=== PATIENT | male | born 1960 | race Caucasian/White ===

== ENCOUNTER 2018-09-16 07:32 | Day surgery (SDC) | payer OTHER ==
[~2018-09-16] VITALS: Ht 175.3 cm; Wt 77.1 kg
[2018-09-16] VITALS (9 sets, daily range): BP systolic 117–137; BP diastolic 65–79
--- NOTE | 2018-09-16 06:48 | Anethesia Preoperative Eval ---
Anesthesia Pre-op PMH/ROS General Date of Evaluation: Sep 16, 2018 Anesthesiologist: Mike ASA Score: ASA 2 Mallampati Score Class I : Soft palate, uvula, fauces, pillars visible Class II: Soft palate, uvula, fauces visible Class III: Soft palate, base of uvula visible Class IV: Only hard plate visible Mallampati Classification: Class II Surgeon: Rhona Diagnosis: Abdominal mass Surgical Procedure: EUS with FNA Anesthesia History: none Family History: no anesthesia problems Allergies: Coded Allergies: No Known Allergies (Verified , 05/24/10) Medications: see eMAR Patient NPO?: Yes NPO Date: Sep 15, 2018 NPO Time: 22:00 Past Medical History Cardiovascular: Denies: HTN, CAD, ID, valve dz, arrhythmia, other Pulmonary: Denies: asthma, COPD, ANDRE, other Gastrointestinal/Genitourinary: Reports: GERD, other - BPH; Denies: CRI, ESRD Neurologic/Psychiatric: Denies: dementia, CVA, depression/anxiety, TIA, other Endocrine: Denies: DM, hypothyroidism, steroids, other HEENT: Denies: cataract (L), cataract (R), glaucoma, [place] (L), [place] (R), other Hematology/Immune: Denies: anemia, DVT, bleeding disorder, other Musculoskeletal/Integumentary: Denies: OA, RA, DJD, DDD, edema, other PSxH Narrative: septoplast, c-spine and l-spine fusion, prostatectomy, hernia repair Anesthesia Pre-op Phys. Exam Physician Exam see chart Constitutional: NAD Cardiovascular: RRR Respiratory: CTA Airway Exam Mallampati Score: Class II MO: full ROM: full Anesthesia Pre-op A/P Labs see chart Studies Pre-op Studies: EKG - sr Risk Assessment & Plan Assessment: ASA II Plan: MAC Status Change Before Surgery: No Pre-Antibiotics Drug: N/A Meaghan Irwin MD Sep 16, 2018 06:48
[2018-09-16] MEDS ORDERED: LR 1000ml 1,000 ML IVLG SCH (07:57)
[2018-09-16] MEDS ORDERED: DiphenhydrAMINE 50mg/ml Inj IVP PRN (08:00)
--- NOTE | 2018-09-16 09:21 | Pre-Procedure Note/Attestation ---
Pre-Procedure Note/Attestation Complete Prior to Procedure Planned Procedure: not applicable Procedure Narrative: egd/eus Indications for Procedure Pre-Operative Diagnosis: abd mass Attestation I attest that I discussed the nature of the procedure; its benefits; risks and complications; and alternatives (and the risks and benefits of such alternatives ), prior to the procedure, with the patient (or the patient's legal registration representative). I attest that, if there was a reasonable possibility of needing a blood transfusion, the patient (or the patient's legal registration representative) was given the [facility] standardized written summary, pursuant to the [place] Blood Safety Act ([place] Health and Safety Code # 1645, as amended). I attest that I re-evaluated the patient just prior to the surgery and that there has been no change in the patient's H&P, except as documented below: Omar Melgoza MD Sep 16, 2018 09:21
[2018-09-16] MEDS ORDERED: CIALIS5 MG PO (09:35)
[2018-09-16] MEDS ORDERED: FIORICET1 EA ORAL (09:35)
[2018-09-16] MEDS ORDERED: omeprazole PO (09:37)
[2018-09-16] MEDS ORDERED: TRAZODONE HCL150 MG ORAL (09:37)
--- NOTE | 2018-09-16 09:56 | Short Stay Surgery H&P ---
History of Present Illness History of Present Illness Chief Complaint abd mass HPI Kaveh Edmondson is a 57 year old male who was admitted on for Abdominal Pain Patient History Allergies: Coded Allergies: No Known Allergies (Verified , 05/24/10) PAST MEDICAL HISTORY: (1) Previous back surgery Medication History Scheduled Acetamin/Butalbital/Caffeine* (Fioricet*), 1 TAB ORAL Q6H, (Reported) Tadalafil (Cialis), 5 MG PO DAILY, (Reported) Trazodone* (Trazodone*), 150 MG ORAL BEDTIME, (Reported) [omeprazole], 1 TAB-CAP PO DAILY, (Reported) Review of Systems Cardiovascular: Reports: no symptoms Respiratory: Reports: no symptoms Skeletal: Reports: no symptoms Gastrointestinal: Reports: no symptoms Genitourinary: Reports: no symptoms Neurologic: Reports: no symptoms Endocrine: Reports: no symptoms Hematologic: Reports: no symptoms Physical Exam Vital Signs Last Vital Signs Date Time Temp Pulse Resp B/P (MAP) Pulse Ox O2 Delivery O2 Flow Rate FiO2 09/16/18 08:24 97.4 69 18 127/77 99 Room Air Labs Laboratory Tests Test 09/16/18 08:45 Carcinoembryonic Antigen Pending CA 19-9 Antigen Pending Skin: normal HENT: normal Heart: normal Lungs: normal Abdomen: normal Extremities: normal Plan Plan of Care egd/EUS Attestation Are the patient's medical conditions optimized for surgery? Attestation Response: yes Omar Melgoza MD Sep 16, 2018 09:56
[2018-09-16] MEDS ORDERED: cefOXitin 1gm Inj ONE (10:00)
[2018-09-16] MEDS ORDERED: Lidocaine 1% MPF 10mg/ml 5ml ONE (10:00)
[2018-09-16] MEDS ORDERED: Propofol 200mg/20ml IV ONE (10:00)
[2018-09-16] MEDS ORDERED: LR 1000ml ONE (10:00)
[2018-09-16] MEDS ORDERED: Heplock Flush 100 units/ml 3 ml syr ONE (10:19)
[2018-09-16] MEDS ORDERED: Heplock Flush 100 units/ml 3 ml syr IV ONE (10:30)
--- NOTE | 2018-09-16 11:03 | Immediate Post-Op Evaluation ---
Immediate Post-Op Evalulation Immediate Post-Op Evalulation Procedure: EUS with FNA Date of Evaluation: Sep 16, 2018 Time of Evaluation: 11:04 IV Fluids: 1L Blood Products: 0 Estimated Blood Loss: 0 Urinary Output: 0 Blood Pressure Systolic: 124 Blood Pressure Diastolic: 65 Pulse Rate: 74 Respiratory Rate: 16 O2 Sat by Pulse Oximetry: 100 Temperature (Fahrenheit): 97 Pain Score (1-10): 0 Nausea: No Vomiting: No Complications 0 Patient Status: awake, reacts, patent, none Hydration Status: adequate Drug: N/A Meaghan Irwin MD Sep 16, 2018 11:03
--- NOTE | 2018-09-16 11:04 | 48 Hour Post Anesthesia Eval ---
Post Anesthesia Evaluation Procedure: EUS with FNA Date of Evaluation: Sep 16, 2018 Airway: patent Nausea: No Vomiting: No Pain Intensity: 0 Hydration Status: adequate Cardiopulmonary Status: at baseline Mental Status/LOC: patient returned to baseline Post-Anesthesia Complications: 0 Follow-up care needed: ready to discharge Meaghan Irwin MD Sep 16, 2018 11:04
--- NOTE | 2018-09-16 11:12 | Endoscopy Procedure Note ---
Endoscopy Procedure Note General Indication for Procedure: abd mass Procedures Performed: EGD, other - EUS Operative Findings/Diagnosis: same Specimen: yes Pt Tolerated Procedure Well: Yes Estimated Blood Loss: none Anesthesia Anesthesiologist: tripp Anesthesia: MAC Inserted Devices Implant(s) used?: No GI Core Measures 50 yrs or older w/o bx or poly: Not Applicable 10yrs. F/U not recommended: Not Applicable Omar Melgoza MD Sep 16, 2018 11:12
--- NOTE | 2018-09-16 17:00 | Procedure Note ---
DATE OF PROCEDURE: 09/16/2018 SURGEON: Omar Melgoza M.D. PROCEDURE: Upper endoscopy, endoscopic ultrasound, and cold biopsy aspiration. INDICATION: Abdominal mass. REASON FOR PROCEDURE: The procedure, risks, benefits, and possible consequences, including hemorrhage, aspiration, perforation and infection, and alternative treatments, were explained to the patient/legal guardian by Dr. Omar Melgoza and the patient/legal guardian understood and accepted these risks. PROCEDURE IN DETAIL: After informed consent was obtained and the patient was adequately sedated, Olympus upper endoscope was advanced from mouth into the second portion of the duodenum and retroflexion performed in the stomach. The patient did not have any obvious ulcerations, varices, or any other pathology seen. At this time, the upper endoscope was retrieved and the EUS scope was introduced. First we used radial scope. Starting scanning at gastroesophageal junction, we found left adrenal gland, which was normal. Celiac axis was seen without any obvious celiac axis lymphadenopathy. Then, we encountered a 4.5 cm lesion close to the celiac axis with at most probably gastrohepatic ligament area. This lesion had component of the cystic and also component of solid, I would say about 50-50, almost 50% of it was cystic in nature and 50% was solid in nature. Did not seem to be arising from the pancreas nor from the liver, nor from any vascular structure. Then, we passed the scope through the rest of the stomach and duodenum to evaluate the rest of the pancreas. Pancreas grossly looked within normal limit. Ampulla was examined. There was no evidence of any pancreatic duct or common bile duct dilatation at the ampulla. Pancreatic duct measured 2.6 mm and common bile duct measured 3.3 mm at the ampulla. Common bile duct measured 5.6 mm above that in the mid portion of the common bile duct. There was no obvious peripancreatic lymphadenopathy. At this time, the EUS radial scope was removed and linear one was introduced for FNA. Using a 22-gauge core needle, we did four passes. In the first pass, we focused on the cystic part to get some fluid for CEA level. We got over 1 cm of yellowish fluid first and then we found some bloody later. After that, we did another three FNAs going mostly for the solid portion component of it and we collected tissue and sent it to the pathology. The patient tolerated the procedure very well without any complication. SUMMARY OF FINDINGS: 1. A 4.5 cm lesion at the gastrohepatic ligament area, had a cystic and also solid component, unknown etiology at this time, status post fine needle aspiration x4. 2. Normal pancreatic duct and common bile duct. No any obvious other pathology seen. RECOMMENDATIONS: 1. Follow up biopsy results and treat accordingly. 2. We will also send CEA level and CA-19-9 level for today. I want to thank Dr. Zavala for this kind referral. Omar Melgoza M.D. DR: JAVED JOB#: [id number] CC:
== END 2018-09-16 12:55 | disposition home or self-care (01) ==
LOC: GAS 07:32
DX: R19.00 Intra-abdominal and pelvic swelling, mass and lump, unspecified site (principal); K21.9 Gastro-esophageal reflux disease without esophagitis; N40.0 Benign prostatic hyperplasia without lower urinary tract symptoms
CPT/HCPCS: 43238; 82378; 93005; J0694; J1642; J2704; 94003; 94150

== ENCOUNTER 2019-05-03 15:44 | Emergency (ER) | payer OTHER ==
[~2019-05-03] VITALS: Ht 175.3 cm; Wt 77.1 kg
[~2019-05-03 15:44] MED LIST: CIALIS5 MG PO; FIORICET1 EA ORAL; TRAZODONE HCL150 MG ORAL; omeprazole PO
[2019-05-03 15:51] VITALS: BP 127/85
--- NOTE | 2019-05-03 15:52 | NUR ---
ED Nurse Note: pt presents to ED c/o abd pain that is diffusely over his lower abdomen. he rates the pain a 7/10 and denies any injury or trauma to the area but does note that it feels similar to diverticulitis pain that he has experienced in the past. pt also reports having chronic neck and back px that he takes norco daiy for but has not taken it for the last 4 days. pt reports having loose stools but denies any diarrhea
[2019-05-03] MEDS ORDERED: Omnipaque-300 100ml vial INJ PRN (16:00)
[2019-05-03] MEDS ORDERED: Ketorolac 30mg Inj IV ONE (16:15)
[2019-05-03] MEDS ORDERED: Morphine Sulfate 4mg/ml Inj (IV USE ONLY) IVP ONE ×2 (16:15→17:30)
[2019-05-03 16:33] LABS: APPEARANCE,URINE CLEAR; BILIRUBIN, URINE NEGATIVE (NEGATIVE); COLOR,URINE PALE YELLOW; GLUCOSE, URINE (UA) NEGATIVE (NEGATIVE); KETONES,URINE 1+ (NEGATIVE); LEUKOCYTE ESTERASE ,URINE 3+ (NEGATIVE); NITRITE,URINE NEGATIVE (NEGATIVE); PH,URINE 5 (4.5-8.0); PROTEIN,URINE NEGATIVE (NEGATIVE); UROBILINOGEN,URINE NORMAL MG/DL (0.0-1.0)
--- NOTE | 2019-05-03 16:39 | Emergency Room Report ---
History of Present Illness General Chief Complaint: Abdominal Pain Source: Patient, Medical Record Present Illness HPI 58-year-old male presents ED for evaluation. Patient complaining of abdominal pain for the last 10 days. Sharp, localized to left lower quadrant, 8 out of 10 , nonradiating. Notes history of diverticulitis. States this feels the same. States last episode was about 18 months ago. Denies any bloody stool. Denies fevers or chills. No other aggravating relieving factors. Denies any other associated symptoms Allergies: Coded Allergies: No Known Allergies (Verified , 05/24/10) Patient History Past Medical History: other - diverticulitis Past Surgical History: none Pertinent Family History: none Social History: Denies: smoking, alcohol use, drug use Immunizations: UTD Reviewed Nursing Documentation: PMH: Agreed; PSxH: Agreed Nursing Documentation-PMH Past Medical History: No History, Except For Hx Cardiac Problems: No Hx Cancer: No Hx Gastrointestinal Problems: Yes Hx Neurological Problems: No Review of Systems All Other Systems: negative except mentioned in HPI Physical Exam Vital Signs Date Time Temp Pulse Resp B/P (MAP) Pulse Ox O2 Delivery O2 Flow Rate FiO2 05/03/19 15:51 97.9 83 18 127/85 (99) 96 Room Air Sp02 EP Interpretation: reviewed, normal General Appearance: no apparent distress, alert, GCS 15, non-toxic Head: normocephalic, atraumatic Eyes: bilateral eye normal inspection, bilateral eye PERRL ENT: hearing grossly normal, normal pharynx, no angioedema, normal voice Neck: full range of motion, supple/symm/no masses Respiratory: chest non-tender, lungs clear, normal breath sounds, speaking full sentences Cardiovascular #1: regular rate, rhythm, no edema Cardiovascular #2: 2+ carotid (R), 2+ carotid (L), 2+ radial (R), 2+ radial (L) , 2+ dorsalis pedis (R), 2+ dorsalis pedis (L) Gastrointestinal: normal bowel sounds, soft, non-distended, no guarding, no rebound, tenderness - LLQ Rectal: deferred Genitourinary: normal inspection, no CVA tenderness Musculoskeletal: back normal, gait/station normal, normal range of motion, non- tender Neurologic: alert, oriented x3, responsive, motor strength/tone normal, sensory intact, speech normal Psychiatric: judgement/insight normal, memory normal, mood/affect normal, no suicidal/homicidal ideation Reflexes: 3+ bicep (R), 3+ bicep (L), 3+ tricep (R), 3+ tricep (L), 3+ knee (R) , 3+ knee (L) Lymphatic: no adenopathy Medical Decision Making Diagnostic Impression: Primary Impression: Constipation Qualified Codes: K59.00 - Constipation, unspecified Additional Impressions: Abdominal pain Qualified Codes: R10.9 - Unspecified abdominal pain Opioid dependence Qualified Codes: F11.29 - Opioid dependence with unspecified opioid-induced disorder ER Course Hospital Course 58-year-old M presents to ED with abdominal pain Differential diagnosis includes-appendicitis, cholecystitis, small bowel obstruction, gastritis, Clinical course Patient placed on stretcher. After initial history and physical I ordered labs , IV fluids, pain medications and CT scan Labs - no leukocytosis, electrolytes ok , LFTs normal, UA unremarkable CT scan shows no acute pathology. there is significant fecal impaction Discussed findings with the patient. States that normally he takes a bowel prep regimen every day which she had skipped for the last 3 days. I reviewed CURES and patient was receiving extensive narcotic prescriptions on a monthly basis. Safe for discharge for close outpatient follow-up. States he has a PMD and a GI specialist. Given copy of CT results I feel this is a highly complex case requiring extensive working including EKG/ Rhythm strip, Xray/CT/US, Blood/urine lab work, repeat exams while in ED, and administration of strong opiates/narcotics for pain control, admission to hospital or close patient follow up. Diagnosis -constipation, opioid dependence, abdominal pain Stable and discharged to home with Rx Dicyclomine, Colace. Followup with PMD. Return to ED if symptoms recur or worsen Labs Test 05/03/19 16:00 05/03/19 16:02 Urine Color Pale yellow Urine Appearance Clear Urine pH 5 (4.5-8.0) Urine Specific [place] 1.025 (1.005-1.035) Urine Protein Negative (NEGATIVE) Urine Glucose (UA) Negative (NEGATIVE) Urine Ketones 1+ (NEGATIVE) Urine Blood 2+ (NEGATIVE) Urine Nitrite Negative (NEGATIVE) Urine Bilirubin Negative (NEGATIVE) Urine Urobilinogen Normal MG/DL (0.0-1.0) Urine Leukocyte Esterase 3+ (NEGATIVE) Urine RBC 2-4 /HPF (0 - 0) Urine WBC 5-10 /HPF (0 - 0) Urine Squamous Epithelial Cells None /LPF (NONE/OCC) Urine Bacteria Few /HPF (NONE) White Blood Count 6.5 K/UL (4.8-10.8) Red Blood Count 5.50 M/UL (4.70-6.10) Hemoglobin 16.1 G/DL (14.2-18.0) Hematocrit 47.1 % (42.0-52.0) Mean Corpuscular Volume 86 FL (80-99) Mean Corpuscular Hemoglobin 29.3 PG (27.0-31.0) Mean Corpuscular Hemoglobin Concent 34.2 G/DL (32.0-36.0) Red Cell Distribution Width 9.7 % (11.6-14.8) Platelet Count 229 K/UL (150-450) Mean Platelet Volume 6.1 FL (6.5-10.1) Neutrophils (%) (Auto) 66.3 % (45.0-75.0) Lymphocytes (%) (Auto) 19.5 % (20.0-45.0) Monocytes (%) (Auto) 7.3 % (1.0-10.0) Eosinophils (%) (Auto) 5.1 % (0.0-3.0) Basophils (%) (Auto) 1.7 % (0.0-2.0) Sodium Level 140 MMOL/L (136-145) Potassium Level 3.8 MMOL/L (3.5-5.1) Chloride Level 107 MMOL/L (98-107) Carbon Dioxide Level 28 MMOL/L (21-32) Anion Gap 5 mmol/L (5-15) Blood Urea Nitrogen 13 mg/dL (7-18) Creatinine 1.2 MG/DL (0.55-1.30) Estimat Glomerular Filtration Rate > 60 mL/min (>60) Glucose Level 110 MG/DL (74-106) Calcium Level 8.9 MG/DL (8.5-10.1) Total Bilirubin 0.8 MG/DL (0.2-1.0) Aspartate Amino Transf (AST/SGOT) 16 U/L (15-37) Alanine Aminotransferase (ALT/SGPT) 28 U/L (12-78) Alkaline Phosphatase 57 U/L (46-116) Total Protein 6.9 G/DL (6.4-8.2) Albumin 3.4 G/DL (3.4-5.0) Globulin 3.5 g/dL Albumin/Globulin Ratio 1.0 (1.0-2.7) Lipase 129 U/L (73-393) CT/MRI/US Diagnostic Results CT/MRI/US Diagnostic Results : Imaging Test Ordered: CT A/P Impression No bowel obstruction, free fluid, free air, diverticulitis, or appendicitis. 4.8 cm gastrohepatic mass is favored to represent nonspecific lymphadenopathy. Indeterminate 1.4 cm right adrenal nodule. Splenomegaly. Nonspecific small foci of hypoattenuation in the liver and kidneys. No hydronephrosis. Gallbladder and pancreas are unremarkable. Last Vital Signs Date Time Temp Pulse Resp B/P (MAP) Pulse Ox O2 Delivery O2 Flow Rate FiO2 05/03/19 15:51 97.9 83 18 127/85 (99) 96 Room Air Status: improved Disposition: HOME, SELF-CARE Condition: Stable Scripts Docusate Sodium* (COLACE*) 100 Mg Capsule 100 MG ORAL THREE TIMES A DAY, #30 CAP Prov: Thomas Bowling MD 05/03/19 Dicyclomine Hcl* (DICYCLOMINE HCL*) 10 Mg Capsule 10 MG ORAL QID, #20 CAP Prov: Thomas Bowling MD 05/03/19 Thomas Bowling MD May 03, 2019 16:39
[2019-05-03 16:56] LABS: BASOPHILS % (AUTO) 1.7 % (0.0-2.0); EOSINOPHILS % (AUTO) 5.1 % (0.0-3.0); HEMATOCRIT 47.1 % (42.0-52.0); HEMOGLOBIN 16.1 G/DL (14.2-18.0); LYMPHOCYTES % (AUTO) 19.5 % (20.0-45.0); MEAN CORPUSCULAR VOLUME 86 FL (80-99); MONOCYTES % (AUTO) 7.3 % (1.0-10.0); NEUTROPHILS % (AUTO) 66.3 % (45.0-75.0); PLATELET COUNT 229 K/UL (150-450); RED CELL DISTRIBUTION WIDTH 9.7 % (11.6-14.8); WHITE BLOOD COUNT 6.5 K/UL (4.8-10.8)
[2019-05-03 16:57] LABS: ANION GAP 5 mmol/L (5-15); BLOOD UREA NITROGEN 13 mg/dL (7-18); CALCIUM 8.9 MG/DL (8.5-10.1); CARBON DIOXIDE 28 MMOL/L (21-32); CHLORIDE 107 MMOL/L (98-107); CREATININE 1.2 MG/DL (0.55-1.30); POTASSIUM 3.8 MMOL/L (3.5-5.1); SODIUM 140 MMOL/L (136-145)
[2019-05-03 17:02] LABS: ALANINE AMINOTRANSFERASE 28 U/L (12-78); ALBUMIN 3.4 G/DL (3.4-5.0); ALKALINE PHOSPHATASE 57 U/L (46-116); ASPARTATE AMINO TRANSFERASE 16 U/L (15-37); BILIRUBIN,TOTAL 0.8 MG/DL (0.2-1.0)
--- NOTE | 2019-05-03 17:36 | NUR ---
ED Nurse Note: pt transported via wheelchair to CT. he is stable and not in any acute distress
--- NOTE | 2019-05-03 18:22 | Diagnostic Imaging Report ---
Clinical Indication: Abdominal pain Technique: No oral contrast utilized, per emergency room physician request IV administration nonionic contrast. Venous phase spiral acquisition obtained through the abdomen and pelvis. Multiplanar reconstructions were generated. Total dose length product 1062 mGycm. CTDIvol(s) 17 mGy. Dose reduction achieved using automated exposure control Comparison: none Findings: There is an unusual low-attenuation mass in the lesser sac. This is contiguous with the right superolateral aspect of the celiac axis and surrounds the proximal portion to a slight extent. It is also contiguous with the medial caudate lobe of the liver. It appears to be separate from the right adrenal. It measures 4.5 x 2.9 x 3.5 cm. The bladder wall is thickened. The prostate is enlarged. There is a polypoid protrusion off of the prostate into the bladder floor which measures 2.1 x 2.4 x 2.4 cm, and demonstrates slight contrast enhancement. There is also more focal thickening of the posterior bladder wall. No renal or ureteral calculi, hydronephrosis, or hydroureter demonstrated. Both kidneys demonstrate subcentimeter low-attenuation lesions which are too small to characterize. The appendix is normal. There are colonic diverticula. No evidence of acute diverticulitis. No small bowel distention. No free or loculated intraperitoneal gas or fluid is evident. The distal esophagus, stomach, duodenum are unremarkable. The liver demonstrates multiple cysts. It also demonstrates multiple subcentimeter low-attenuation lesions which are too small to characterize. The gallbladder, bile ducts are unremarkable. There is questionably pancreas divisum as the dorsal duct appears to enter separately into the duodenum. The spleen is borderline enlarged, measuring 13 cm long axis dimension. The right adrenal demonstrates a 12 mm nodule. The left adrenal demonstrates a 10 mm nodule. These both demonstrate nonspecific attenuation. No retroperitoneal or mesenteric mass or adenopathy noted. The bones demonstrate degenerative spondylosis changes. There is anterior lumbar spine fusion hardware bridging L4, L5, and S1. The included lung bases demonstrate posterior dependent atelectatic changes. Compared to the prior exam, previously demonstrated gastric distention is no longer evident. The bladder wall thickening and inferior protrusion or more striking on the previous study. Previously demonstrated hiatal hernia is not currently evident. The previously demonstrated large hepatic cyst has involuted. Impression: 4.5 x 2.9 x 3.5 cm mass in the lesser sac. Most likely differential considerations include lymphadenopathy, primary mesenchymal tumor Colonic diverticulosis. No evidence of diverticulitis Bilateral adrenal masses. Consider further evaluation with adrenal specific MRI Borderline splenomegaly Hepatic cysts. Subcentimeter low-attenuation liver lesions which are too small to characterize, most likely benign simple cysts. There are also subcentimeter low-attenuation renal lesions which are too small to characterize, most likely benign simple cysts Degenerative spondylosis. Evidence of prior spinal fusion surgery Possible pancreas divisum anatomy The above findings are in agreement with the [facility] preliminary report Prostatomegaly. Polypoid protrusion of the prostate into the bladder floor with some enhancement most likely just represents bladder floor protrusion of the enlarged prostate, but the possibility of bladder tumor should also be considered. Were not described on separate recommend urological evaluation Bladder wall thickening. This could indicate cystitis or be due to chronic bladder outlet obstruction The above 2 findings were not described on the [facility] preliminary report. These were discussed with Dr. Burrell at the time of interpretation. Discrepancy also reported [facility] The CT scanner at [facility] is accredited by the [employer] and the scans are performed using protocols designed to limit radiation exposure to as low as reasonably achievable to attain images of sufficient resolution adequate for diagnostic evaluation.
[2019-05-03] MEDS ORDERED: DICYCLOMINE HCL10 MG ORAL (18:35)
[2019-05-03] MEDS ORDERED: COLACE100 MG ORAL (18:35)
[2019-05-03 18:50] VITALS: BP 132/78
--- NOTE | 2019-05-03 18:50 | NUR ---
ER DISCHARGE NOTE: Patient is cleared to be discharged per ERMD, pt is aox4, on room air, with stable vital signs. pt was given dc and prescription instructions, pt was able to verbalize understanding, pt id band and iv site removed without complications. pt is able to ambulate with steady gait. pt took all belongings.
== END 2019-05-03 18:50 | disposition home or self-care (01) ==
LOC: EMR 16:10
DX: R10.12 Left upper quadrant pain (principal); K59.00 Constipation, unspecified; F11.29 Opioid dependence with unspecified opioid-induced disorder; K57.90 Diverticulosis of intestine, part unspecified, without perforation or abscess without bleeding
CPT/HCPCS: 36415; 74177; 80053; 81003; 83690; 85025; 96374; 96375; 96376; 99284; J1885; J2270; J7040; Q9967

== ENCOUNTER 2019-05-10 10:37 | Emergency (ER) | payer OTHER ==
[~2019-05-10] VITALS: Ht 175.3 cm; Wt 77.1 kg
[~2019-05-10 10:37] MED LIST changes: +COLACE100 MG ORAL; +DICYCLOMINE HCL10 MG ORAL
[2019-05-10] MEDS ORDERED: Lidocaine 2% Visc 15ml soln ORAL ONE (11:00)
[2019-05-10] MEDS ORDERED: Mylanta II UD 30ml ORAL ONE (11:00)
[2019-05-10] MEDS ORDERED: Dicyclomine HCl 10mg/5ml oral soln ORAL ONE (11:00)
[2019-05-10] MEDS ORDERED: Omnipaque-300 100ml vial INJ PRN (11:00)
--- NOTE | 2019-05-10 11:04 | NUR ---
ED Nurse Note: PT WALKED IN TO ER TODAY FROM HOME. AOX4. PT C/O PERSISTENT LEFT LOWER QUADRANT ABDOMINAL PAIN, 03/06. PT SEEN LAST WEEK FOR SAME SYMPTOM. PT ALSO C/O FEVER AND DIARRHEA - LAST BM X THIS AM WHICH PT STATES WAS SOFT. ORAL TEMP AT BEDSIDE: 97.9. ACTIVE BOWEL SOUNDS IN ALL QUADRANTS. PT DENIES BLOODY STOOL. PT DENIES NAUSEA OR VOMITING.
[2019-05-10 11:06] VITALS: BP 132/84
[2019-05-10] MEDS ORDERED: Hydromorphone 0.5mg/0.5ml inj IVP ONE (11:15)
--- NOTE | 2019-05-10 11:21 | Emergency Room Report ---
History of Present Illness General Chief Complaint: Abdominal Pain Source: Patient Present Illness HPI 58-year-old male presents with left lower quadrant pain since 05/03/2019 patient endorses fever/chills, left lower abdominal pain, diarrhea feelings of dehydration, no chest pain no shortness of breath no dyspnea on exertion, no dysuria patient states the abdominal pain is deep aching nature no aggravating relieving factors severity is moderate, constant patient presents for evaluation. Allergies: Coded Allergies: No Known Allergies (Verified , 05/24/10) Patient History Past Medical History: see triage record Reviewed Nursing Documentation: PMH: Agreed; PSxH: Agreed Nursing Documentation-PM Past Medical History: No History, Except For Hx Cardiac Problems: No Hx Cancer: No Hx Gastrointestinal Problems: Yes Hx Neurological Problems: No Review of Systems All Other Systems: negative except mentioned in HPI Physical Exam Vital Signs Date Time Temp Pulse Resp B/P (MAP) Pulse Ox O2 Delivery O2 Flow Rate FiO2 05/10/19 10:44 97.5 73 20 137/86 (103) 96 Room Air Sp02 EP Interpretation: reviewed, normal General Appearance: well appearing, no apparent distress, alert Head: normocephalic, atraumatic Eyes: bilateral eye PERRL, bilateral eye EOMI ENT: uvula midline, moist mucus membranes Neck: supple, thyroid normal, supple/symm/no masses Respiratory: lungs clear, no respiratory distress, no retraction, no accessory muscle use Cardiovascular #1: normal peripheral pulses, regular rate, rhythm, no edema, no gallop, no murmur Gastrointestinal: non tender, soft, no guarding, no rebound Musculoskeletal: normal inspection Neurologic: alert, oriented x3 Psychiatric: mood/affect normal Skin: no rash, warm/dry Medical Decision Making Diagnostic Impression: Primary Impression: Abdominal pain Qualified Codes: R10.32 - Left lower quadrant pain Additional Impression: Diverticulitis ER Course 85-year-old male presents with continued symptoms slowly improving, not tender on palpation however he does endorse subjective left lower quadrant pain, with diarrhea, subjective fever and chills, no dysuria, differential diagnosis includes infectious gastroenteritis, diverticulitis, appendicitis, no rebound no guarding, patient had a negative CT 05/03/2019, patient incidentally found to have a prostate mass, patient notified to get a biopsy and follow-up with urology. Patient does not want a CT scan joint decision-making was made with patient not to proceed with CT scan patient does not want extra radiation Will provide patient with antibiotics Disposition home with return precautions Laboratory Tests Test 05/10/19 11:10 White Blood Count 7.9 K/UL (4.8-10.8) Red Blood Count 5.90 M/UL (4.70-6.10) Hemoglobin 17.2 G/DL (14.2-18.0) Hematocrit 50.4 % (42.0-52.0) Mean Corpuscular Volume 85 FL (80-99) Mean Corpuscular Hemoglobin 29.2 PG (27.0-31.0) Mean Corpuscular Hemoglobin Concent 34.2 G/DL (32.0-36.0) Red Cell Distribution Width 10.8 % (11.6-14.8) L Platelet Count 256 K/UL (150-450) Mean Platelet Volume 6.1 FL (6.5-10.1) L Neutrophils (%) (Auto) 63.3 % (45.0-75.0) Lymphocytes (%) (Auto) 21.7 % (20.0-45.0) Monocytes (%) (Auto) 10.1 % (1.0-10.0) H Eosinophils (%) (Auto) 3.7 % (0.0-3.0) H Basophils (%) (Auto) 1.2 % (0.0-2.0) Urine Color Pale yellow Urine Appearance Clear Urine pH 5 (4.5-8.0) Urine Specific [place] 1.020 (1.005-1.035) Urine Protein Negative (NEGATIVE) Urine Glucose (UA) Negative (NEGATIVE) Urine Ketones Negative (NEGATIVE) Urine Blood 2+ (NEGATIVE) H Urine Nitrite Negative (NEGATIVE) Urine Bilirubin Negative (NEGATIVE) Urine Urobilinogen Normal MG/DL (0.0-1.0) Urine Leukocyte Esterase 1+ (NEGATIVE) H Urine RBC 0-2 /HPF (0 - 0) H Urine WBC 0-2 /HPF (0 - 0) Urine Squamous Epithelial Cells None /LPF (NONE/OCC) Urine Bacteria None /HPF (NONE) Sodium Level 136 MMOL/L (136-145) Potassium Level 4.2 MMOL/L (3.5-5.1) Chloride Level 104 MMOL/L (98-107) Carbon Dioxide Level 26 MMOL/L (21-32) Anion Gap 6 mmol/L (5-15) Blood Urea Nitrogen 13 mg/dL (7-18) Creatinine 1.3 MG/DL (0.55-1.30) Estimate Glomerular Filtration Rate 56.7 mL/min (>60) Glucose Level 107 MG/DL (74-106) H Lactic Acid Level 1.00 mmol/L (0.4-2.0) Calcium Level 9.4 MG/DL (8.5-10.1) Total Bilirubin 0.9 MG/DL (0.2-1.0) Aspartate Amino Transferase (AST) 18 U/L (15-37) Alanine Aminotransferase (ALT) 47 U/L (12-78) Alkaline Phosphatase 58 U/L (46-116) Total Protein 7.5 G/DL (6.4-8.2) Albumin 3.7 G/DL (3.4-5.0) Globulin 3.8 g/dL Albumin/Globulin Ratio 1.0 (1.0-2.7) Lipase 130 U/L (73-393) Urine Opiates Screen Negative (NEGATIVE) Urine Barbiturates Screen Negative (NEGATIVE) Phencyclidine (PCP) Screen Negative (NEGATIVE) Urine Amphetamines Screen Negative (NEGATIVE) Urine Benzodiazepines Screen Positive (NEGATIVE) H Urine Cocaine Screen Negative (NEGATIVE) Urine Marijuana (THC) Screen Negative (NEGATIVE) EKG Diagnostic Results EKG Time: 11:06 EP Interpretation: NSR, rate 64, QTc 402, no acute ST elevations, left axis deviation Last Vital Signs Date Time Temp Pulse Resp B/P (MAP) Pulse Ox O2 Delivery O2 Flow Rate FiO2 05/10/19 11:06 74 18 Room Air 05/10/19 11:06 97.9 132/84 98 Disposition: HOME, SELF-CARE Condition: Stable Scripts Amoxicillin/Potassium Clav 875-125* (AUGMENTIN 875-125 TABLET*) 1 Each Tablet 1 TAB ORAL TWICE A DAY, #20 TAB Prov: Wil Burrell MD 05/10/19 Referrals: Omar Melgoza MD (PCP) [facility] Patient Instructions: Abdominal Pain, Adult, Diverticulitis, [id number] Additional Instructions: The patient was provided with discharge instructions, notified to follow-up with a primary care doctor and or specialist in the next 24-48 hours, and to return to the ED if they have worsening of their symptoms. Please note that this report is being documented using [employer] technology. This can lead to erroneous entry secondary to incorrect interpretation by the dictating instrument. PLEASE FOLLOW-UP WITH UROLOGY FOR PROSTATE BIOPSY OF Wil Connolly MD May 10, 2019 11:21
[2019-05-10 11:26] LABS: BASOPHILS % (AUTO) 1.2 % (0.0-2.0); EOSINOPHILS % (AUTO) 3.7 % (0.0-3.0); HEMATOCRIT 50.4 % (42.0-52.0); HEMOGLOBIN 17.2 G/DL (14.2-18.0); LYMPHOCYTES % (AUTO) 21.7 % (20.0-45.0); MEAN CORPUSCULAR VOLUME 85 FL (80-99); MONOCYTES % (AUTO) 10.1 % (1.0-10.0); NEUTROPHILS % (AUTO) 63.3 % (45.0-75.0); PLATELET COUNT 256 K/UL (150-450); RED CELL DISTRIBUTION WIDTH 10.8 % (11.6-14.8); WHITE BLOOD COUNT 7.9 K/UL (4.8-10.8)
[2019-05-10 11:42] LABS: APPEARANCE,URINE CLEAR; BILIRUBIN, URINE NEGATIVE (NEGATIVE); COLOR,URINE PALE YELLOW; GLUCOSE, URINE (UA) NEGATIVE (NEGATIVE); KETONES,URINE NEGATIVE (NEGATIVE); LEUKOCYTE ESTERASE ,URINE 1+ (NEGATIVE); NITRITE,URINE NEGATIVE (NEGATIVE); PH,URINE 5 (4.5-8.0); PROTEIN,URINE NEGATIVE (NEGATIVE); UROBILINOGEN,URINE NORMAL MG/DL (0.0-1.0)
[2019-05-10 11:46] LABS: ANION GAP 6 mmol/L (5-15); BLOOD UREA NITROGEN 13 mg/dL (7-18); CALCIUM 9.4 MG/DL (8.5-10.1); CARBON DIOXIDE 26 MMOL/L (21-32); CHLORIDE 104 MMOL/L (98-107); CREATININE 1.3 MG/DL (0.55-1.30); POTASSIUM 4.2 MMOL/L (3.5-5.1); SODIUM 136 MMOL/L (136-145)
[2019-05-10 11:47] LABS: ALBUMIN 3.7 G/DL (3.4-5.0)
[2019-05-10 12:07] LABS: ALANINE AMINOTRANSFERASE 47 U/L (12-78); ALKALINE PHOSPHATASE 58 U/L (46-116); ASPARTATE AMINO TRANSFERASE 18 U/L (15-37); BILIRUBIN,TOTAL 0.9 MG/DL (0.2-1.0)
[2019-05-10] MEDS ORDERED: AUGMENTIN 875-1 EAC1 ORAL (12:25)
[2019-05-10] MEDS ORDERED: LORazepam 1mg tab ORAL ONE (12:30)
[2019-05-10 12:45] VITALS: BP 130/81
[2019-05-10 12:57] VITALS: BP 130/81
== END 2019-05-10 12:45 | disposition home or self-care (01) ==
LOC: EMR 11:10
DX: R10.32 Left lower quadrant pain (principal); K57.92 Diverticulitis of intestine, part unspecified, without perforation or abscess without bleeding; N42.9 Disorder of prostate, unspecified
CPT/HCPCS: 36415; 80053; 80307; 81003; 83605; 83690; 85025; 87040; 93005; 96361; 96374; 96375; 99284; J1170; S0028; J7030